=== PATIENT | female | born 1990 | race Two or more races ===

== ENCOUNTER 2016-12-27 17:53 | Emergency (ER) | payer MEDICAID ==
[~2016-12-27] VITALS: Ht 170.2 cm; Wt 72.6 kg
[2016-12-27 20:27] VITALS: BP 137/78
[2016-12-27] MEDS ORDERED: SERTRALINE HCL 50 MG TAB PO ONE (20:45)
== END 2016-12-27 21:06 | disposition home or self-care (01) ==
LOC: ER 17:55
DX: F31.9 Bipolar disorder, unspecified (principal); Z76.0 Encounter for issue of repeat prescription